=== PATIENT | male | born 1975 | race Asian ===

== ENCOUNTER 2019-03-30 13:28 | Emergency (ER) | payer OTHER ==
[~2019-03-30] VITALS: Ht 172.7 cm; Wt 82.1 kg
[2019-03-30 13:29] VITALS: Ht 172.7 cm; Wt 82.1 kg
[2019-03-30 14:35] LABS: BASOPHIL % 0.4 % (0-2); PLATELET COUNT 265 x10^3mcL (130-400); RED CELL DISTRIBUTION WIDTH 12.3 % (11.5-14.5)
[2019-03-30 15:41] LABS: CARBON DIOXIDE 26.4 mmol/L (21-32); CHLORIDE SERUM 105 mmol/L (98-107); CREATININE SERUM 1.1 mg/dL (0.7-1.3); GFR1 > 60 mL/min; GLUCOSE SERUM 151 mg/dL (74-106); POTASSIUM SERUM 4.4 mmol/L (3.5-5.1); SODIUM SERUM 143 mmol/L (136-145)
[2019-03-30 15:53] LABS: ALBUMIN 3.6 g/dL (3.4-5.0); ALKALINE PHOSPHATASE 69 U/L (46-116); ALT/SGPT 73 U/L (16-63); AST/SGOT 24 U/L (15-37); BILIRUBIN TOTAL 0.2 mg/dL (0.20-1.00); LIPASE 192 IU/L (73-393); TOTAL PROTEIN, SERUM 7.5 g/dL (6.4-8.2)
[2019-03-30 17:19] LABS: microscopic required? NO
[2019-03-30 17:27] LABS: urine erythrocyte NEGATIVE (NEGATIVE)
[2019-03-30 18:36] LABS: AMPHETAMINE QUAL UR NONE DETECTED (See below)
[2019-03-30 18:48] LABS: T4(THYROXINE) 8.9 ug/dL (4.7-13.3)
[2019-03-30 19:36] VITALS: BP 122/70
== END 2019-03-30 19:36 | disposition home or self-care (01) ==
LOC: ED 13:28
PROVIDERS: Emergency Medicine
DX: R55 Syncope and collapse (principal); A08.4 Viral intestinal infection, unspecified; E11.9 Type 2 diabetes mellitus without complications
CPT/HCPCS: 82962; 87804; J7030